=== PATIENT | female | born 1965 ===

== ENCOUNTER 2017-11-02 03:39 | Emergency (ER) | payer BC, OTHER ==
[2017-11-02 04:20] VITALS: RESP 18; O2SAT 97
--- NOTE | 2017-11-02 05:06 | C.PDOC ---
History Of Present Illness 52 y/o female with hx asthma, (no flu vaccine this year) c/o 1 week hx of body aches, subjective fever, cough with green sputum. tonight pt reports eyes swollen and with discharge. feels blurred in right due to discharge. Time Seen by Provider: 11/02/17 04:14 Chief Complaint (Nursing): Cough, Cold, Congestion History Per: Patient History/Exam Limitations: no limitations Onset/Duration Of Symptoms: Days (7) Current Symptoms Are (Timing): Still Present Location Of Pain: Diffuse Myalgias Sick Contacts (Context): None Associated Symptoms: Fever, Sore Throat, Cough, Sputum, Myalgias Past Medical History Reviewed: Historical Data, Nursing Documentation, Vital Signs Vital Signs: Last Vital Signs Temp 98.3 F 11/02/17 05:32 Pulse 83 11/02/17 05:32 Resp 18 11/02/17 05:32 BP 113/73 11/02/17 05:32 Pulse Ox 97 11/02/17 07:13 - Medical History PMH: Asthma - [facility] Procedures NEBULIZER THERAPY (06/08/14) Family History: States: Unknown Family Hx - Social History Hx Alcohol Use: Yes Hx Substance Use: Yes (marijuana) - Immunization History Hx Tetanus Toxoid Vaccination: No Hx Influenza Vaccination: No Hx Pneumococcal Vaccination: No Review Of Systems Constitutional: Positive for: Fever (subjective). Negative for: Chills, Sweats Eyes: Positive for: Vision Change (right eye blurry), Conjunctivae Inflammation ENT: Positive for: Nose Discharge, Nose Congestion. Negative for: Throat Pain Respiratory: Positive for: Cough, Sputum Gastrointestinal: Negative for: Abdominal Pain Genitourinary: Negative for: Dysuria Musculoskeletal: Negative for: Neck Pain Skin: Negative for: Rash Neurological: Negative for: Weakness, Numbness Physical Exam - Physical Exam Appears: Non-toxic, No Acute Distress, Other (uncomfortable) Skin: Warm, Dry Head: Atraumatic, Normacephalic Eye(s): bilateral: PERRL, EOMI, Other (conjunctiva injected with whitish discharge, swelling to upper lids. ) Nose: Other (congested) Oral Mucosa: Moist Tongue: Normal Appearing Lips: Normal Appearing Teeth: Normal Dentition Gingiva: Normal Appearing Throat: Erythema, No Exudate Neck: No Decreased ROM, Supple Chest: No Deformity, No Tenderness Cardiovascular: Rhythm Regular, No Murmur Respiratory: No Decreased Breath Sounds, No Accessory Muscle Use, No Rales, No Wheezing Gastrointestinal/Abdominal: Bowel Sounds, Soft, No Tenderness Back: No CVA Tenderness Neurological/Psych: Oriented x3, Normal Speech, Normal Cognition, Normal Motor, Normal Sensation ED Course And Treatment O2 Sat by Pulse Oximetry: 97 Medical Decision Making Medical Decision Making: asthmatic patient with flu like symptoms and cough with green sputum for a week , here with bilateral conjunctivitis. will start on ofloxacin eye drops, d/c with zpak; pt has albuterol mdi and meds for nebulizer at home. Disposition Counseled Patient/Family Regarding: Diagnosis, Need For Followup, Rx Given - Disposition Referrals: Mark Alcocer MD [Medical Doctor] - Mj Frazier MD [Staff Provider] - Disposition: HOME/ ROUTINE Disposition Time: 06:04 Condition: STABLE Additional Instructions: Use one drop into each eye every 4 hours. Follow up with Dr Frazier (eye doctor) as soon as possible for conjunctivitis. USe nebulizer and inhalers 3-4 times per day. Take antibiotics as prescribed. Folllow up with your PMD in 1- 2 days. Prescriptions: Azithromycin [Z-Isaiah] 250 mg PO DAILY #6 tab Instructions: Upper Respiratory Infection (ED), Conjunctivitis (ED) Forms: [facility] ([place]), General Discharge Instructions - Clinical Impression Clinical Impression: Upper respiratory infection, Conjunctivitis
[2017-11-02 05:33] VITALS: PULSE 83; TEMP 98.3
[2017-11-02 05:34] VITALS: BP 113/73
[2017-11-02] MEDS ORDERED: Ofloxacin 0.3% Ophth Soln OU STA (06:01)
[2017-11-02] MEDS ORDERED: Ofloxacin 0.3% Ophth Soln OU SCH (08:00)
== END 2017-11-02 06:21 | disposition home or self-care (01) ==
LOC: C.ER 03:39
DX: J06.9 Acute upper respiratory infection, unspecified (principal); H10.9 Unspecified conjunctivitis

== ENCOUNTER 2018-11-25 12:11 | Emergency (ER) | payer BC, MEDICAID, OTHER ==
[2018-11-25 12:35] VITALS: TEMP 98.7; O2SAT 98
--- NOTE | 2018-11-25 13:34 | C.PDOC ---
History Of Present Illness 53 y/o female pt with hx of trigeminal neuralgia c/o worsening pain to the right side of face. Pt takes gabapentin and carbamazepine intermittently secondary to loss of insurance, limited supply of medication and unable to f/u with neurologist. Pt has no other associated sx or complaints at this time. Time Seen by Provider: 11/25/18 13:03 Chief Complaint (Nursing): Pain, Chronic History Per: Patient History/Exam Limitations: no limitations Onset/Duration Of Symptoms: Days Current Symptoms Are (Timing): Still Present Severity: Moderate Past Medical History Reviewed: Historical Data, Nursing Documentation, Vital Signs Vital Signs: Last Vital Signs Temp 98.7 F 11/25/18 12:32 Pulse 70 11/25/18 12:32 Resp 18 11/25/18 12:32 BP 126/82 11/25/18 12:32 Pulse Ox 98 11/25/18 12:32 - Medical History PMH: Asthma Other PMH: trigeminal neuralgia - [facility] Procedures NEBULIZER THERAPY (06/08/14) Family History: States: Unknown Family Hx - Social History Hx Alcohol Use: Yes Hx Substance Use: No (marijuana) - Immunization History Hx Tetanus Toxoid Vaccination: No Hx Influenza Vaccination: No Hx Pneumococcal Vaccination: No Review Of Systems Constitutional: Positive for: Other (pain to right side of face ) Eyes: Negative for: Pain ENT: Positive for: Other (right side facial pain) Cardiovascular: Negative for: Chest Pain Respiratory: Negative for: Cough, Shortness of Breath Gastrointestinal: Negative for: Nausea, Vomiting, Abdominal Pain Musculoskeletal: Negative for: Neck Pain Skin: Negative for: Rash Neurological: Negative for: Weakness, Numbness Physical Exam - Physical Exam Appears: Non-toxic, No Acute Distress Skin: Warm, Dry, No Rash, No Ecchymosis Head: Normacephalic, Tenderness (right facial ), No Swelling, No Abrasion, No Laceration, Other (right facial pain ) Cardiovascular: Rhythm Regular Respiratory: Normal Breath Sounds, No Rales, No Rhonchi, No Wheezing Neurological/Psych: Oriented x3, Normal Speech, Normal Cognition, Normal Motor, Normal Sensation ED Course And Treatment O2 Sat by Pulse Oximetry: 98 (RA) Pulse Ox Interpretation: Normal Medical Decision Making Medical Decision Making: Plans: -- gabapentin -- carbamazepine d/c home, Disposition Counseled Patient/Family Regarding: Diagnosis, Need For Followup, Rx Given - Disposition Disposition: HOME/ ROUTINE Disposition Time: 13:59 Condition: GOOD Additional Instructions: Take medications as prescribed,. Follow up with your neuroloigst as soon as possible. Prescriptions: Albuterol HFA [Ventolin HFA 90 mcg/actuation (8 g)] 2 puff IH Q6 #1 inhaler Carbamazepine 200 mg PO BID #60 tablet Gabapentin 600 mg PO BID #60 tablet Instructions: Trigeminal Neuralgia Forms: [facility] ([place]), General Discharge Instructions - Clinical Impression Clinical Impression: Trigeminal neuralgia of right side of face - PA / SAFETY ADVISOR / Resident Statement MD/ has reviewed & agrees with the documentation as recorded. - Scribe Statement The provider has reviewed the documentation as recorded by the Yohan Nelson Do All medical record entries made by the Yohan were at my direction and personally dictated by me. I have reviewed the chart and agree that the record accurately reflects my personal performance of the history, physical exam, medical decision making, and the department course for this patient. I have also personally directed, reviewed, and agree with the discharge instructions and disposition.
[2018-11-25 14:09] VITALS: BP 114/63; PULSE 87; RESP 16
== END 2018-11-25 14:09 | disposition home or self-care (01) ==
LOC: C.ER 12:11
DX: G50.0 Trigeminal neuralgia (principal)